=== PATIENT | female | born 1985 | race Caucasian/White ===

== ENCOUNTER → 2019-12-23 10:43 | Outpatient (BNVA) | payer BC, SELFPAY | PROVIDERS: PCP Internal Medicine; Visit Provider Advanced Practice Midwife | DX: Z76.89 Persons encountering health services in other specified circumstances (principal) ==

== ENCOUNTER → 2020-03-22 09:34 | Outpatient (BNVA) | payer BC, SELFPAY | PROVIDERS: PCP Internal Medicine; Visit Provider Advanced Practice Midwife ==

== ENCOUNTER → 2021-05-04 08:29 | Outpatient (BNVA) | payer BC, SELFPAY | PROVIDERS: Visit Provider Advanced Practice Midwife ==

== ENCOUNTER 2022-05-11 14:44 | Outpatient (REF) | payer BC, SELFPAY ==
[2022-05-17 06:09] LABS: HPV mRNA E6/E7 rflx Not Detected (Not Detected)
== END 2022-05-11 14:45 | disposition home or self-care (01) ==
LOC: HO.LNP 14:44
PROVIDERS: Visit Provider Advanced Practice Midwife
DX: Z01.419 Encounter for gynecological examination (general) (routine) without abnormal findings (principal); Z11.51 Encounter for screening for human papillomavirus (HPV)
CPT/HCPCS: 87624; 88142

== ENCOUNTER 2023-05-15 07:55 | Outpatient (AMB) | payer BC, SELFPAY ==
--- NOTE | 2023-05-15 08:00 | A.OFFVIS_ITS ---
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 Doing well with no concerns. Doing well on her control on Suhas for many years, history of facial acne. Experiencing leg cramps at times in wondering if that has a concern. She tries to eat healthy and stays active with exercise. Currently is sexually active. She denies vaginal itching and irritation. STI screening offered; she declines. She denies any contraindications to control such as: migraines with aura, history of DVT or pulmonary emboli, high blood pressure, liver disease, thrombolic disorders, Lupus, +JESUS, breast cancer, or smoking. Denies family history of Colon cancer. PGM-breast and ovarian cancer. Last pap smear 2022, negative. [facility] Medical History Cholecystectomy planned Vitiligo Tinea versicolor Rosacea Acne Surgical History Hx of cholecystectomy Hx of tonsillectomy Family History Son Asthma Paternal Grandmother Ovarian cancer Breast cancer Maternal Grandmother Heart attack Mother Bipolar 1 disorder Social History Alcohol intake: never Patient Tobacco Use Status: Never used Tobacco Sexual orientation: Straight/Heterosexual Gender identity: Female Female Reproductive History Menstrual Age of Menarche: 14 Date of last menstrual period: 05/04/23 Total pregnancies: 3 Full term: 3 Number of Living Children: 3 Date of last pap smear: 05/11/22 (neg pap and hpv) History of abnormal pap smear: Yes (2002 FABIENNE 1) Review of Systems Const All systems reviewed & are unremarkable except as noted in HPI and below Reports as per HPI Eyes Reports no additional complaints ENT Reports no additional complaints Card Reports no additional complaints Resp Reports no additional complaints GI Reports as per HPI and Reports no additional complaints Reports as per HPI Musc Reports no additional complaints Skin/Breast Reports as per HPI Neuro Reports no additional complaints Psych Reports no additional complaints Endo Reports no additional complaints Tony/Lymph Reports no additional complaints Aller/Immun Reports no additional complaints Physical Exam Vital Signs: Last Vital Signs BP 90/60 05/15/23 08:10 BMI result Body Mass Index 29.9 Const General: cooperative, healthy appearing, no acute distress, well developed and alert Orientation/consciousness: patient oriented x3 HEENT Head: Yes normal to inspection Eyes General: appearance normal, both eyes and all related structures Neck Neck: Yes normal visual inspection Thyroid: Thyroid normal Chest Chest palpation & inspection: normal inspection of the chest and other (no puckering, dimpling, peau de orange, retraction, discharge, masses) Breast/axilla inspection: normal inspection of the breasts Breast/axilla palpation: normal palpation of the breasts Resp Effort & Inspection: normal respiratory effort GI Inspection: Yes normal to inspection Palpation (GI): Soft to palpation Rectal Exam - Female: deferred General: Yes bladder normal to palpation External Female Exam: normal external appearance and normal appearance of the urethra Speculum Exam - Vagina: normal appearance of the vagina, normal palpation and normal vaginal discharge Speculum Exam - Cervix: normal appearance of the cervix and normal palpation Bimanual exam- vagina & uterus: normal bimanual exam, normal palpation, uterine size normal, bladder normal to palpation, normal palpation and non-tender Bimanual Exam- Adnexa, other: no masses Skin General skin exam: no rashes or lesions noted Rashes: no rashes Neuro General: patient oriented x3 Cognition (Neuro): normal cognition Extrem General: Yes normal to inspection Psych Attitude: cooperative Thought process: Normal thought process present Assessment & Plan Assessment & Plan (1) Encounter for well woman exam with routine gynecological exam: Code(s): Z01.419 - Encounter for gynecological examination (general) (routine) without a bnormal findings Plan Discussed: Current recommendations for pap smears per ASCCP guidelines. Breast awareness and periodic breast exams. Maintain a healthy lifestyle including a well balanced diet and routine exercise. control hormone use warnings: go to ER if and loss of vision, blindness, severe headache, chest pain or difficulty breathing, severe abdominal pain, or any pain or swelling in an extremity. Discussed the difference with leg cramps verses a DVT. Advised self-help measures for leg cramps if no improvement to speak with her primary care provider. Discussed the unique properties of Suhas. In the potassium-sparing affects advise adequate hydration, and reviewed warning. Patient verbalizes understanding and agrees to the plan of care. She was given opportunity to ask questions and all questions were answered to the best of my ability. 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 This note is constructed using voice recognition software. While every effort has been made to ensure accuracy, supervisor special services errors may have been included. Medications: Refilled drospirenone-ethinyl estradiol 3-0.02 mg (SUHAS (28)) 1 tab PO DAILY 28 days 84 tabs 4RF Coding Level of Care Code Est Pt Prev Care 18-39y(62257) Diagnoses Encounter for well woman exam with routine gynecological exam Z01.419
[2023-05-15 08:10] VITALS: BP 90/60; BMI 29.9
== END 2023-05-15 08:39 | disposition home or self-care (01) ==
PROVIDERS: Visit Provider Advanced Practice Midwife
DX: Z01.419 Encounter for gynecological examination (general) (routine) without abnormal findings (principal)
CPT/HCPCS: 99395

== ENCOUNTER → 2023-05-15 07:55 | Outpatient (BNVA) | payer BC, SELFPAY | PROVIDERS: Visit Provider Advanced Practice Midwife ==

== ENCOUNTER 2024-05-21 08:04 | Outpatient (AMB) | payer OTHER, SELFPAY ==
--- NOTE | 2024-05-21 08:08 | MHC.OFFVIS ---
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 She denies any breast injury, previous biopsies or surgeries, infections, or other injuries or strain full exercise. Doing well on Suhas. She denies any contraindications to control such as: migraines with aura, history of DVT or pulmonary emboli, high blood pressure, liver disease, thrombolic disorders, Lupus, +JESUS, breast cancer, or smoking. Currently is sexually active. She denies vaginal itching and irritation. STI screening offered; she accepts. She tries to eat healthy and stays active with exercise. Family history of breast cancer-paternal grandmother. Last pap smear 2022, negative. [facility] Medical History Cholecystectomy planned Vitiligo Tinea versicolor Rosacea Acne Surgical History Hx of cholecystectomy Hx of tonsillectomy Family History Son Asthma Paternal Grandmother Ovarian cancer Breast cancer Maternal Grandmother Heart attack Mother Bipolar 1 disorder Social History Alcohol intake: never Patient Tobacco Use Status: Never used Tobacco Sexual orientation: Straight/Heterosexual Gender identity: Female Female Reproductive History Menstrual Age of Menarche: 14 Duration of menses: 3-5 days Date of last menstrual period: 05/02/24 control method: pills Total pregnancies: 3 Full term: 3 Number of Living Children: 3 Date of last pap smear: 05/11/22 (neg pap and hpv) History of abnormal pap smear: Yes (2002 cal[place] 1) Review of Systems Const All systems reviewed & are unremarkable except as noted in HPI and below Reports as per HPI Eyes Reports no additional complaints ENT Reports no additional complaints Card Reports no additional complaints Resp Reports no additional complaints GI Reports as per HPI and Reports no additional complaints Reports as per HPI Musc Reports no additional complaints Skin/Breast Reports as per HPI Neuro Reports no additional complaints Psych Reports no additional complaints Endo Reports no additional complaints Tony/Lymph Reports no additional complaints Aller/Immun Reports no additional complaints Physical Exam Vital Signs: Last Vital Signs BP 100/62 05/21/24 08:10 BMI result Body Mass Index 29.3 Const General: cooperative, healthy appearing, no acute distress, well developed and alert Orientation/consciousness: patient oriented x3 HEENT Head: Yes normal to inspection Eyes General: appearance normal, both eyes and all related structures Neck Neck: Yes normal visual inspection Thyroid: Thyroid normal Chest Other: Focused area of pain is at 05:00 position of the right breast. Right anterior chest wall localized appearing as a sebaceous gland cyst 2 cm, firm, mobile, nontender, not inflamed, not draining. Chest palpation & inspection: normal inspection of the chest and other (no puckering, dimpling, peau de orange, retraction, discharge, masses) Breast/axilla inspection: normal inspection of the breasts Breast/axilla palpation: normal palpation of the breasts Resp Effort & Inspection: normal respiratory effort GI Inspection: Yes normal to inspection Palpation (GI): Soft to palpation Rectal Exam - Female: deferred General: Yes bladder normal to palpation External Female Exam: normal external appearance and normal appearance of the urethra Speculum Exam - Vagina: normal appearance of the vagina, normal palpation and normal vaginal discharge Speculum Exam - Cervix: normal appearance of the cervix and normal palpation Bimanual exam- vagina & uterus: normal bimanual exam, normal palpation, uterine size normal, bladder normal to palpation, normal palpation and non-tender Bimanual Exam- Adnexa, other: no masses Skin General skin exam: no rashes or lesions noted Rashes: no rashes Neuro General: patient oriented x3 Cognition (Neuro): normal cognition Extrem General: Yes normal to inspection Psych Attitude: cooperative Thought process: Normal thought process present Assessment & Plan Assessment & Plan (1) Encounter for well woman exam with routine gynecological exam: Code(s): Z01.419 - Encounter for gynecological examination (general) (routine) without abnormal findings Category: Medical Plan: Discussed: Current recommendations for pap smears per ASCCP guidelines. Breast awareness and periodic breast exams. Mammogram diagnostic an ultrasound ordered, follow up per guidelines. Maintain a healthy lifestyle including a well balanced diet and routine exercise. control hormone use warnings: go to ER if and loss of vision, blindness, severe headache, chest pain or difficulty breathing, severe abdominal pain, or any pain or swelling in an extremity. Offered a referral to general surgery for evaluation of cyst on anterior right chest wall, she declines. Advised she can request in the future if or see her PCP if area becomes inflamed, unusual skin changes or appearance, tenderness or larger. Patient verbalizes understanding and agrees to the plan of care. She was given opportunity to ask questions and all questions were answered to the best of my ability. RTO in one year for annual risk investigator examination. This note is constructed using voice recognition software. While every effort has been made to ensure accuracy, evp general counsel errors may have been included. (2) Breast pain: Code(s): N64.4 - Mastodynia Category: Medical Plan Plan bilateral diagnostic mammogram, and right breast ultrasound, follow up for test results, call sooner if there is any other concerns. Orders: Orders US breast RT limited Today N64.4 - Mastodynia MM tomosynthesis diagnostic BI Today N64.4 - Mastodynia, Z12.31 - Encounter for screening mammogram for malignant neoplasm of breast Medications: Refilled drospirenone-ethinyl estradiol 3-0.02 mg (SUHAS (28)) 1 tab PO DAILY 28 days 84 tabs 4RF Coding Level of Care Code Est Pt Prev Care 40-64y(66486) Diagnoses Encounter for well woman exam with routine gynecological exam Z01.419 Breast pain N64.4
[2024-05-21 08:10] VITALS: BP 100/62; BMI 29.3
== END 2024-05-21 08:51 | disposition home or self-care (01) ==
LOC: HO.HWS 08:05
PROVIDERS: Visit Provider Advanced Practice Midwife
DX: Z01.419 Encounter for gynecological examination (general) (routine) without abnormal findings (principal); N64.4 Mastodynia
CPT/HCPCS: 99396; 99459

== ENCOUNTER 2024-07-08 08:26 | Outpatient (REF) | payer OTHER, SELFPAY ==
--- NOTE | ~2024-07-08 | MM_ITS ---
EXAMINATION: MM DIAGNOSTIC DIGITAL BREAST TOMOSYNTHESIS, BILATERAL CLINICAL INFORMATION: Right breast pain and central inner right breast anterior depth which has somewhat gone away. COMPARISON: Mammography: Baseline. TECHNIQUE: Digital breast mammography with tomosynthesis is performed in both the craniocaudal and mediolateral oblique views along with computer-aided detection (CAD). FINDINGS: The breasts are heterogeneously dense, which may obscure small masses (ACR BI-RADS breast composition Category c). Sanderson marker in the central inner right breast anterior depth without underlying abnormality. There are no significant masses, abnormal calcifications, or other abnormalities. Targeted color Doppler ultrasound scanning in the area the patient's pain from 1-5 o'clock demonstrates normal fibronodular breast tissue. There is no sonographic abnormality. Results are provided to the patient at time of visit by the technologist. MM/MM tomosynthesis diagnostic BI IMPRESSION: Right: No mammographic or sonographic abnormality to account for the patient's pain which has somewhat decreased. Recommend clinical evaluation follow-up. Left: Negative. ASSESSMENT: BI-RADS BI-RADS 1 - Negative RECOMMENDATION: 1 year F/U This patient's information was entered into a reminder system with a target due date for their next mammogram. Electronically signed by: Mandie King DO 07/08/2024 09:28 AM EDT
== END 2024-07-08 08:27 | disposition home or self-care (01) ==
LOC: HO.MAMMO 08:26
PROVIDERS: Visit Provider Advanced Practice Midwife
DX: N64.4 Mastodynia (principal)
CPT/HCPCS: 76642; 77062; 77066

== ENCOUNTER → 2024-07-08 08:30 | Outpatient (BNV) | payer OTHER, SELFPAY | PROVIDERS: Visit Provider Internal Medicine | DX: N64.4 Mastodynia (principal) | CPT/HCPCS: 76642; 77062; 77066 ==

== ENCOUNTER 2024-09-16 16:13 | Outpatient (AMB) | payer OTHER, SELFPAY ==
[2024-09-16 16:17] VITALS: BP 115/66; PULSE 80; TEMP 36.8; O2SAT 99; BMI 30.5
--- NOTE | 2024-09-16 16:17 | MHC.OFFWIV ---
Intake Vital Signs 09/16/24 16:17 Height 5 ft 4 in Weight 177 lb 8 oz BMI 30.5 BP 115/66 Blood Pressure Location Rt brachial Position Sitting Pulse 80 Pulse Source Pulse Oximeter Temp 98.2 F Temp Source Oral Pulse Oximetry (%) 99 Oxygen Delivery Method Room Air Intake Visit Reasons: EP-rt leg rash Patient Tobacco Use Status: Never used Tobacco Program Architect Required: No Is last menstrual period known: Yes Last menstrual period: 08/20/24 Post menopausal: No Patient : No Allergies No Known Allergies (No Known Allergies*) Allergy (Verified 09/16/24 16:24) Do you need a note to return to daycare/school/sports/work: No HPI HPI Comments History of Present Illness Details joint History - The patient is a 39-year-old female presenting with a rash on her legs. - The rash began on Sunday or Sunday, becoming increasingly red and painful. - The rash is described as sore and clustered, with no opening of the spots. - The patient had shingles 11 years ago during , and the current rash is suspected to be shingles again. - Hydrocortisone cream has been applied since the rash started, and the patient has been taking pictures to monitor its progression. - She denies new lotions, soaps, detergents, medications, bug bites, plant exposure, joint pain, fever, or chills. Physical Exam Respiratory: Normal respiratory effort and able to speak in complete sentences. Skin: Vesicular rash with an erythematous base on the posterior upper right leg. No discharge noted. No bleeding noted. Patient was informed and verbally consented to the use of an ambient scribe for clinic note documentation during this visit. [facility] Medical History (Updated 05/21/24 @ 08:47 by Cristine Gruber CNM) Breast pain Cholecystectomy planned Vitiligo Tinea versicolor Rosacea Acne Surgical History Hx of cholecystectomy Hx of tonsillectomy Family History Son Asthma Paternal Grandmother Ovarian cancer Breast cancer Maternal Grandmother Heart attack Mother Bipolar 1 disorder Social History Alcohol intake: never Patient Tobacco Use Status: Never used Tobacco Patient : No Sexual orientation: Straight/Heterosexual Gender identity: Female Female Reproductive History Menstrual Age of Menarche: 14 Date of last menstrual period: 08/20/24 Review of Systems Const All systems reviewed & are unremarkable except as noted in HPI and below Physical Exam Vital Signs: Last Vital Signs Temp 98.2 F 09/16/24 16:17 Pulse 80 09/16/24 16:17 BP 115/66 09/16/24 16:17 Pulse Ox 99 09/16/24 16:17 Oxygen Delivery Method Room Air 09/16/24 16:17 BMI result Body Mass Index 30.5 Assessment & Plan Assessment & Plan (1) Rash: Code(s): R21 - Rash and other nonspecific skin eruption Plan Most likely shingles vs folliculitis vs contact derm Plan - Prescribed Valacyclovir for antiviral treatment. - Prescribed Prednisone to reduce inflammation and pain. - Advised to apply lidocaine gel for numbing effect on the rash. - Recommended to avoid contact with unvaccinated children and women. Medications: New prednisone 50 mg PO daily 5 tabs 0RF 5 days valacyclovir 1,000 mg PO Q8H 21 tabs 0RF 7 days lidocaine 5% 1 appl topical DAILY 30 grams 0RF Coding Level of Care Code Est Pt Level 3 (35051) Diagnoses Rash R21
== END 2024-09-16 16:59 | disposition home or self-care (01) ==
PROVIDERS: Visit Provider Physician Assistant Medical
DX: R21 Rash and other nonspecific skin eruption (principal)

== ENCOUNTER 2024-11-10 10:00 | Outpatient (AMB) | payer OTHER, SELFPAY ==
--- NOTE | 2024-11-10 10:05 | MHC.PC.OV ---
Vital Signs 11/10/24 10:20 Height 5 ft 4.17 in Weight 178 lb BMI 30.4 BP 115/57 L Respiration 16 Pulse 72 Pulse Source Pulse Oximeter Temp 98.4 F Temp Source Temporal Artery Scan Pulse Oximetry (%) 99 Oxygen Delivery Method Room Air Intake Visit Reasons: Establish care Electric Meter Tester Required: No Accompanied by: Self / Same As Patient Allergies No Known Allergies (No Known Allergies*) Allergy (Verified 11/10/24 10:26) Medication List - Last Reconciled 11/10/24 by Shalini Winston PA-C drospirenone-ethinyl estradiol 3-0.02 mg (SUHAS (28)) 1 tab PO DAILY 28 days Tobacco use date assessed: 11/10/24 Dental Screening Dental Screen Date: 11/10/24 Did you have a dental visit in the last 12 months?: Yes Did you have a dental problem in the last 6 months where you did not have access to dental care?: No Was dental information given to patient?: Patient has dentist HPI Establish care HPI Details The patient is a 39-year-old female presenting for a new patient appointment and wellness visit. She reports experiencing numbness in her fingers and legs, which occurs intermittently and without any associated injury to her back or neck. The numbness can occur during activities such as cooking or standing, and sometimes while sitting, but is not accompanied by chest pain or shortness of breath. The patient has a history of a breast lump, identified as fibronodular breast tissue, located in the right breast between 1:00 to 5:00 positions. She underwent a mammogram and ultrasound, which confirmed the presence of dense breast tissue. Additionally, the patient has a skin cyst on the abdominal wall, which has been growing over the past year. The cyst is described as potentially containing pus, and a referral to dermatology has been suggested for complete removal. Preventative care measures include ordering comprehensive blood work to check for inflammatory markers, CBC, CMP, thyroid function, and vitamin levels. The patient has no significant family history of colon cancer, but her paternal grandmother had breast cancer and her uncle had testicular cancer. [facility] Medical History (Updated 11/10/24 @ 10:53 by Shalini Winston PA-C) Obesity (BMI 30-39.9) Preventative health care Scattered fibroglandular tissue density of right breast on mammography Paresthesias Annual physical exam Skin cyst Breast pain Cholecystectomy planned Vitiligo Tinea versicolor Rosacea Acne Surgical History Hx of cholecystectomy Hx of tonsillectomy Family History Son Asthma Paternal Grandmother Ovarian cancer Breast cancer Maternal Grandmother Heart attack Mother Bipolar 1 disorder Social History Housing: House Alcohol intake: current Alcohol intake frequency: does not drink Patient Tobacco Use Status: Never used Tobacco service: No Current occupational status: employed Sexual orientation: Straight/Heterosexual Gender identity: Female Cognitive needs: No Hearing needs: No Vision needs: Yes (rx contacts) Female Reproductive History Menstrual Age of Menarche: 14 Questionnaire PHQ-9 Over the last 2 weeks, how often have you been bothered by any of the following problems? 1. Little interest or pleasure in doing things: not at all 2. Feeling down, depressed, or hopeless: not at all 3. Trouble falling or staying asleep, or sleeping too much: not at all 4. Feeling tired or having little energy: not at all 5. Poor appetite or overeating: not at all 6. Feeling bad about yourself - or that you are a failure or have let yourself or your family down: not at all 7. Trouble concentrating on things, such as reading the newspaper or watching television: not at all 8. Moving or speaking so slowly that other people could have noticed. Or the opposite - being so fidgety or restless that you have been moving around a lot more than usual: not at all 9. Thoughts that you would be better off or of hurting yourself in some way: not at all Total score: 0 Depression Screening Interpretation: Negative Depression Screening Done: Yes 34440 - PHQ-9 Billing: Yes Source: Developed by Drs. Terrell Meneses, Giovanna Naik, Pratik Hallman and colleagues, with an educational nohelia from [employer]. Thrive Questionnaire Date Thrive assessed: 11/10/24 I am a: Patient What is your living situation today?: I have a steady place to live Within the past 12 months, did the food you bought not last and you didn't have the money to get more?: Never true Within the past 12 months, did you worry whether your food would run out before you got money to buy more?: Never true Do you have trouble paying for medicines?: No Do you have trouble getting transportation to medical appointments?: No Do you have trouble paying your heating and electricity bill?: No Do you have trouble taking care of your child, family member or friend?: No Do you have trouble with day-to-day activities such as bathing, preparing meals, shopping, managing finances, etc.?: No Are you currently unemployed and looking for a job?: No Are you interested in more education?: No Please select the resources that you would like help with: None THRIVE Score: 0 AUDIT C Alcohol Use Questionnaire (AUDIT-C) 1. How often do you have a drink containing alcohol?: Never 3. How often do you have six or more drinks on one occasion?: Never Total Score: 0 Score Reviewed/Action Taken: No SAVITA-7 AMB Questionnaire SAVITA-7 Date SAVITA - 7 assessed: 11/10/24 Feeling nervous, anxious, or on edge: 0 = Not at all Not being able to stop or control worryin = Not at all Worrying too much about different things: 0 = Not at all Trouble relaxin = Not at all Being so restless that it is hard to sit still: 0 = Not at all Becoming easily annoyed or irritable: 0 = Not at all Feeling afraid as if something awful might happen: 0 = Not at all Total SAVITA-7 score (0-4 normal; 5-9 mild; 10-14 moderate; 15-21 severe): 0 Source: Developed by Drs. Terrell Meneses, Giovanna Naik, Pratik Hallman and colleagues, with an educational nohelia from [employer]. SAVITA-7 Assessment Billing SAVITA-7 Assessment Tool: SAVITA-7 Assessment 19954 Review of Systems Const Details: - Neurological: Reports intermittent numbness in fingers and legs. Denies weakness or confusion. - Cardiovascular: Denies chest pain or dyspnea. All systems reviewed & are unremarkable except as noted in HPI and below Physical exam (Primary Care) Vital Signs: Last Vital Signs Temp 98.4 F 11/10/24 10:20 Pulse 72 11/10/24 10:20 Resp 16 11/10/24 10:20 BP 115/57 L 11/10/24 10:20 Pulse Ox 99 11/10/24 10:20 Oxygen Delivery Method Room Air 11/10/24 10:20 Care Plan Goal for BP management: <140/90 at Goal BMI result Body Mass Index 30.4 BMI Assessment/Plan discussion: High BMI High, discussed plan: lifestyle, weight reduction, dietary, physical activity, alcohol moderation and other Tobacco/Smoking Status: Tobacco use Status Tobacco use date assessed 11/10/24 11/10/24 10:24 Patient Tobacco Use Status Never used Tobacco 11/10/24 10:23 PHQ-9: PHQ-9 Score PHQ-9: Total score 0 11/10/24 10:24 Depression Screening Interpretation: Negative Thrive Assessment: Date of Thrive Assessment Date Thrive assessed 11/10/24 11/10/24 10:24 Const Other: Appearance: Alert. Oriented X3. No acute distress. Head: Normal external exam. Normocephalic. Atraumatic. Eyes: Pupils are equal, round, and reactive to light. Extraocular movements intact. Conjunctiva and sclera normal. Eyelids normal. Ears: External auditory canal normal. Tympanic membranes normal. Throat: Pharynx normal. Uvula midline. Moist mucous membranes. Neck: Normal inspection. Neck supple. Full range of motion. No adenopathy. Thyroid Normal. No meningeal signs. No neck mass noted. Cardiovascular: Normal heart rate and rhythm. Heart sound normal. No murmurs noted. Pulses normal throughout. Respiratory: No respiratory distress. Painless inspiration. Breath sounds normal. No wheezes/rales/rhonchi noted. Chest nontender. No accessory muscle usage noted or decreased air movement noted. Abdomen: Soft and nontender. Bowel sounds normal in all 4 quadrants. No distention noted. No organomegaly noted. No visible injury noted. Back: No costovertebral angle tenderness. Full range of motion noted. Skin: Skin warm and dry. Normal skin color. Normal skin turgor. No rashes/lesions/lacerations noted. Noted presence of a cyst on the abdominal wall, described as a skin cyst. Extremities: No lower extremity edema. Extremities exhibit normal range of motion. Extremities nontender. Reports of numbness in fingers and legs, occurring intermittently. Neuro: Oriented X 3. No motor deficit. No sensory deficit. Reflexes normal. Reports of numbness in fingers and legs, occurring intermittently. Office Procedures Flu Questionnaire Does the patient have a severe egg allergy?: No Does the patient have severe life threatening allergies?: No Does the patient have a fever or illness today?: No Has the patient ever had Guillain-F[place] Syndrome?: No Has the patient ever had any past reaction to a flu shot?: No Immunizations Fluarix [id number] (PF) 45 mcg (15 mcg x 3)/0.5 mL IM syringe Performing Provider: Shalini Winston PA-C [place] [facility] [place] [facility] Documented (not given) by: KATY Russ on 11/10/24 10:24 Reason Not Given: Patient Refused Results Reviewed Results Reviewed: - Labs: CBC, CMP, thyroid function, vitamin levels ordered. - Imaging: Mammogram and breast ultrasound performed, showing fibronodular breast tissue. Coding Level of Care Code New Pt Level 4 (81851) New Pt Prev Care 40-64y(26266) Diagnoses Annual physical exam Z00.00 Paresthesias R20.2 Skin cyst L72.9 [facility] health care Z00.00 Obesity (BMI 30-39.9) E66.9 Additional Codes PHQ-9 - 32848 - PHQ-9 Billing: Yes ([id number]) SAVITA-7 Assessment Billing - SAVITA-7 Assessment Tool: SAVITA-7 Assessment 94567 ([id number]) Assessment & Plan Assessment & Plan (1) Annual physical exam: Code(s): Z00.00 - Encounter for general adult medical examination without abnormal findings Category: Medical (2) Paresthesias: Code(s): R20.2 - Paresthesia of skin Category: Medical Plan: The patient reports intermittent numbness in her fingers and legs, occurring during activities and sometimes while sitting. Blood work including CBC, CMP, thyroid function, and vitamin levels has been ordered to investigate potential causes such as vitamin deficiencies or metabolic issues. If results are abnormal, a referral to neurology for further evaluation, including nerve testing, may be considered. (3) Skin cyst: Code(s): L72.9 - Follicular cyst of the skin and subcutaneous tissue, unspecified Category: Medical Plan: The patient has a skin cyst on the abdominal wall, which has been increasing in size. A referral to dermatology has been made for complete excision of the cyst to prevent recurrence. (4) Preventative health care: Code(s): Z00.00 - Encounter for general adult medical examination without abnormal findings Category: Medical Plan: Comprehensive blood work has been ordered as part of preventative care, including CBC, CMP, thyroid function, and vitamin levels. The patient has recently undergone a mammogram, and no immediate concerns were noted. (5) Obesity (BMI 30-39.9): Code(s): E66.9 - Obesity, unspecified Category: Medical Plan: Patient has improved diet and exercise regimen. Condition is chronic and stable continue to monitor. Plan Plan Patient was informed and verbally consented to the use of an ambient scribe for clinic note documentation during this visit. 1. Numbness In Fingers And Legs The patient reports intermittent numbness in her fingers and legs, occurring during activities and sometimes while sitting. Blood work including CBC, CMP, thyroid function, and vitamin levels has been ordered to investigate potential causes such as vitamin deficiencies or metabolic issues. If results are abnormal, a referral to neurology for further evaluation, including nerve testing, may be considered. 2. Breast Lump With Fibronodular Breast Tissue The patient has a breast lump identified as fibronodular breast tissue, confirmed by mammogram and ultrasound. Continued monitoring and routine imaging are recommended to assess any changes in the breast tissue. 3. Skin Cyst On Abdominal Wall The patient has a skin cyst on the abdominal wall, which has been increasing in size. A referral to dermatology has been made for complete excision of the cyst to prevent recurrence. 4. Preventative Care Comprehensive blood work has been ordered as part of preventative care, including CBC, CMP, thyroid function, and vitamin levels. The patient has recently undergone a mammogram, and no immediate concerns were noted. During the visit, we discussed the patient's symptoms of numbness in her fingers and legs, and the plan to conduct comprehensive blood work to identify any underlying causes. We also reviewed the patient's breast lump, confirmed as fibronodular breast tissue, and the need for ongoing monitoring. A referral to dermatology was made for the excision of the abdominal wall cyst, and the patient was advised on the importance of follow-up care. Orders: Orders C Reactive Protein Today Z00.00 - Encounter for general adult medical examination without abnormal findings Complete Blood Count Auto Diff Today Z00.00 - Encounter for general adult medical examination without abnormal findings Comprehensive [place]. Panel Fast Today Z00.00 - Encounter for general adult medical examination without abnormal findings Magnesium Today Z00.00 - Encounter for general adult medical examination without abnormal findings Vitamin B12 and Folate Today Z00.00 - Encounter for general adult medical examination without abnormal findings Vitamin B1 Today Z00.00 - Encounter for general adult medical examination without abnormal findings IRON PROFILE Today D64.9 - Anemia, unspecified Ferritin Today D64.9 - Anemia, unspecified Influenza [id number] Immunization Today Z23 - Encounter for immunization Hemoglobin A1c Today Z00.00 - Encounter for general adult medical examination without abnormal findings Lipid Panel Today Z00.00 - Encounter for general adult medical examination without abnormal findings Liver Panel Today Z00.00 - Encounter for general adult medical examination without abnormal findings Vitamin D 25-OH Total Today Z00.00 - Encounter for general adult medical examination without abnormal findings Zinc Today Z00.00 - Encounter for general adult medical examination without abnormal findings Vitamin A Today Z00.00 - Encounter for general adult medical examination without abnormal findings TSH reflex Free T4 Today Z00.00 - Encounter for general adult medical examination without abnormal findings Referrals Dermatology Referral B36.0 - Pityriasis versicolor, L72.9 - Follicular cyst of the skin and subcutaneous tissue, unspecified, Z00.00 - Encounter for general adult medical examination without abnormal findings Patient Instructions: - Schedule and attend dermatology appointment for cyst removal. - Complete fasting blood work as ordered. - Monitor for any changes in breast lump and report any concerns. - Follow up with primary care provider for results and further management.
[2024-11-10 10:20] VITALS: BP 115/57; PULSE 72; RESP 16; TEMP 36.9; O2SAT 99; BMI 30.4
== END 2024-11-10 10:41 | disposition home or self-care (01) ==
LOC: HO.HMCSH 10:01
PROVIDERS: Visit Provider Physician Assistant Medical
DX: Z00.00 Encounter for general adult medical examination without abnormal findings (principal); R20.2 Paresthesia of skin; Z68.30 Body mass index [BMI] 30.0-30.9, adult; E66.9 Obesity, unspecified; L72.9 Follicular cyst of the skin and subcutaneous tissue, unspecified; Z23 Encounter for immunization

== ENCOUNTER → 2024-11-10 10:00 | Outpatient (BNVA) | payer OTHER, SELFPAY | PROVIDERS: Visit Provider Physician Assistant Medical | DX: Z00.00 Encounter for general adult medical examination without abnormal findings (principal); R20.0 Anesthesia of skin; R20.2 Paresthesia of skin; L72.9 Follicular cyst of the skin and subcutaneous tissue, unspecified; E66.9 Obesity, unspecified; D64.9 Anemia, unspecified; B36.0 Pityriasis versicolor; Z68.30 Body mass index [BMI] 30.0-30.9, adult; Z28.9 Immunization not carried out for unspecified reason | CPT/HCPCS: 96127 ==

== ENCOUNTER 2024-11-13 06:16 | Outpatient (REF) | payer OTHER, SELFPAY ==
[2024-11-13 08:40] LABS: MANUAL DIFF FLAG NO
[2024-11-13 08:45] LABS: Hematocrit 37.6 % (37.0-47.0); Hemoglobin 12.6 g/dl (12.0-16.0); Imm Gran Abs Auto 0.02 X10*3/uL (0.00-0.03); Imm Gran Pct Auto 0.3 % (0.0-0.4); Lymphocytes Absolute Auto 2.5 X10*3/uL (1.2-4.9); Mean Corpuscular HGB Conc 33.5 g/dl (31.0-35.0); Mean Corpuscular Hemoglobin 32.4 pg (27.0-33.0); Mean Corpuscular Volume 96.7 fL (80.0-98.0); NRBC Abs Auto 0.000 X10*3/uL (0.0-0.012); NRBC Pct Auto 0.0 /100WBC (0.0-0.2); Platelet Count 281 X10*3/uL (160-400); Red Blood Count 3.89 X10*6/uL (4.20-5.50); White Blood Count 7.2 X10*3/uL (4.8-10.8)
[2024-11-13 09:21] LABS: Alanine Aminotransferase 15 U/L (0-31); Albumin Level 3.9 g/dL (3.5-5.0); Alkaline Phosphatase 64 U/L (39-117); Anion Gap 9 (12-20); Aspartate Amino Transferase 20 U/L (5-31); Blood Urea Nitrogen 8 mg/dL (9-16); Calcium 9.0 mg/dL (8.4-10.2); Carbon Dioxide 26 mmol/L (22-29); Chloride 110 mmol/L (96-108); Cholesterol 213 mg/dL (<200); Estimated Glomerular Filt Rate > 60; Ferritin 77 ng/mL (10-250); HDL Cholesterol 67 mg/dL (>40); Iron 61 mcg/dL (30-160); Magnesium 1.9 mg/dL (1.6-2.6); Percent Iron Saturation 20 % (15-50); Potassium 3.8 mmol/L (3.3-5.1); Sodium 141 mmol/L (135-145); Total Iron Binding Capacity 304 mcg/dL (228-428); Total Protein 7.0 g/dL (6.5-8.0); Triglycerides 241 mg/dL (<150); Unsaturated Iron Binding 243 ug/dL
[2024-11-13 09:29] LABS: Hemoglobin A1C 81.2773 umol/L; Total Hemoglobin (HGBA1C) 3274.6014 umol/L
[2024-11-13 09:30] LABS: Folate 8.6 ng/mL (> or = 4.0); Vitamin B12 243 pg/mL (200-900)
== END 2024-11-13 06:17 | disposition home or self-care (01) ==
LOC: HO.HMGCLDS 06:16
PROVIDERS: PCP Physician Assistant Medical; Visit Provider Physician Assistant Medical
DX: Z00.00 Encounter for general adult medical examination without abnormal findings (principal); D64.9 Anemia, unspecified; Z13.6 Encounter for screening for cardiovascular disorders; Z13.1 Encounter for screening for diabetes mellitus
CPT/HCPCS: 36415; 80053; 80061; 80076; 82248; 82306; 82607; 82728; 82746; 83036; 83540; 83735; 84425; 84443; 84590; 84630; 85025; 86140